=== PATIENT | male | born 1930 | race Caucasian/White ===

== ENCOUNTER 2017-01-15 15:35 | Emergency (ER) | payer MEDICARE, MEDICAID ==
[~2017-01-15] VITALS: Ht 180.3 cm; Wt 104.5 kg
[~2017-01-15 15:35] MED LIST: COU1 PO; FINA1TAB PO; OMEP20TA86 PO; VALS40TA2 PO
[2017-01-15 15:40] VITALS: BP 175/71; PULSE 70; RESP 18; O2SAT 92
[2017-01-15 16:19] LABS: BASOPHILS % (AUTO) 0.3 % (0-3); Mean Corpuscular Hemoglobin 31.4 pg (27.0-35.0); Mean Corpuscular Volume 95.2 fL (81-100); NEUTROPHILS % (AUTO) 77.5 % (40-74); Platelet Count 165 bil/L (150-400)
[2017-01-15 16:38] LABS: INR 2.09 ratio
--- NOTE | 2017-01-15 18:06 | ED.REPORT ---
HPI-Dental/Mouth Prob Date of Service Jan 15, 2017 ED Provider: Onur Soto MD Arvin is an 86-year-old male presenting with a chief complaint of bleeding from the site of a tooth extraction. Reports having a tooth extracted on Wednesday. There was an initial period of bleeding which resolved. Over today he stood up from his chair and reports "my mouth was suddenly filled with blood ". Has been attempting treatment with gauze packing, and bleeding has slowed. Patient was seen by his dentist and referred to the emergency department. Patient takes Coumadin. His daughter is concerned about having a possibility of rebleeding. Nursing Notes Stated Complaint: BLEEDING FROM MOUTH Chief Complaint: ENT & Mouth Nursing Notes Reviewed: Yes Allergies: Coded Allergies: No Known Allergies (Unverified , 01/15/17) Miscellaneous Medications Finasteride-Expunged Drug, Do Not Renew! (Propecia-Expunged Drug, Do Not Renew! ) 1 Mg Tablet 1 MG PO Omeprazole-Expunged Drug, Do Not Renew! (Omeprazole-Expunged Drug, Do Not Renew! ) 20 Mg Tablet.dr 20 MG PO Valsartan-Expunged Drug, Do Not Renew! (Diovan-Expunged Drug, Do Not Renew!) 40 Mg Tablet 40 MG PO Warfarin Inactive Drug Do Not Use (Coumadin Inactive Drug Do Not Use) 1 Mg Tablet 1 MG PO DAILY General Time Seen by MD: 17:50 Chief Complaint Other (bleeding from site of tooth extraction.) Past Medical History Past Medical History Anxiety Hx of kidney stones Reports: Congestive heart failure, Hypertension Reports: Atrial fibrillation Past Surgical History Pacemaker Smoking History Never Smoker Review of Systems Review of Systems Note: Negative unless stated otherwise in history of present illness Physical Exam General: Well appearing, well developed, well nourished, no acute distress. Well-appearing elderly gentleman seated in wheelchair, receiving oxygen by nasal cannula from his own tank. Head: Atraumatic, normocephalic. Eyes: No scleral icterus or injection. No discharge. Vision grossly intact. ENT: Voice clear, hearing grossly intact. Mouth: Sparse dentition. Slow bleeding from the site of excised left upper incisor. Respiratory: No respiratory distress, no increased work of breathing. Speaks in complete sentences. Skin: Warm and dry. Neurological: Grossly nonfocal. Psychological: alert and oriented. Speech appropriate, linear and logical. Behavior appropriate. Initial Vital Signs Vital Signs (First) Date Time Temp Pulse Resp B/P Pulse Ox O2 Delivery O2 Flow Rate FiO2 01/15/17 15:40 36.6 70 18 175/71 92 Room Air Initial VS: Vital signs abnormal (elevated blood pressure) Interpretation & Diagnostics Lab Results Interpretation Result Diagram: 01/15/17 1610 Test 01/15/17 16:10 White Blood Count 6.7th/mm3 (3.8-10.1) Red Blood Count 4.42mil/mm3 (4.40-5.80) Hemoglobin 13.9g/dL (13.8-17.2) Hematocrit 42.1% (41.0-50.0) Mean Corpuscular Volume 95.2fL (81-100) Mean Corpuscular Hemoglobin 31.4pg (27.0-35.0) Mean Corpuscular Hemoglobin Concent 33.0% (32.0-37.0) Red Cell Distribution Width 14.9% (12.3-15.4) Platelet Count 165bil/L (150-400) Neutrophils (%) (Auto) 77.5% (40-74) Lymphocytes (%) (Auto) 7.9% (14-46) Monocytes (%) (Auto) 11.0% (4-12) Eosinophils (%) (Auto) 3.0% (0-5) Basophils (%) (Auto) 0.3% (0-3) Prothrombin Time 22.7sec (8.1-12.5) Prothromb Time International Ratio 2.09ratio Hold Young Top Tube Received (Received) Procedures Laceration Management Laceration Management: Silver nitrite and TXA applied to wound Time: 20:05 Procedure Performed by: ED physician Consent / Setup / Site Prep: Consent from patient, Time-out performed, Hand hygiene observed, Stand sterile technique Location of Wound: Left upper jaw dental extraction, complicated Wound Length: 1 cm Local Anesthesia: Lidocaine w epi 1% Repair Skin: ___ O (4), Chromic (Gut) # Sutures - SubQ: 4 Suture Technique: Simple (Interrupted) Post-Procedure / Complications: No complications, Condition improved, Tolerated procedure well, Patient stable Re-Eval/Medical Decision Med Decision/Clinical Course 86-year-old gentleman with history of COPD, A. fib taking Coumadin presents with bleeding from the site of a recent tooth extraction performed possibly 4 days ago. After some initial bleeding problems, leading had resolved but resumed abruptly after the patient gabriele from his chair earlier today. Reports spitting out a great deal of blood. Patient was seen by his dentist who referred him to the emergency department. INR is within therapeutic range. H&H are within normal limits. Initial attempts to stop bleeding with direct pressure failed as well as initial attempts with TXA. I discussed the case with Dr. Wang Faith of ENT as well as Dr. soto who met with and examine the patient. Dr. soto succeeded in stopping the bleeding with sutures as well as TXA and silver nitrate. At this point this appears to be a relatively fragile clot and the patient is advised to be extremely cautious eating and drinking. We do feel he is stable and safe to be discharged to home. Advised dental follow-up, provided emergency return precautions. Answered all questions to the best of my ability. Patient verbalizes understanding of and content to the plan. Re-Evaluation/Progress : Time of Eval: 19:51 Patient Status: Condition improved Re-Evaluation/Progress Note: Patient rechecked by Dr. Soto. Discussed with plan for laceration management. Laceration management performed Consultation : Referral / Consult Name: Wang Faith MD Consulted With: ENT Call Returned at: 19:18 Note: Recommends evacuating the clot, injecting with local anesthetic, packing the socket with strip gauze, applying direct pressure. Discharge & Departure Primary Impression: Postoperative bleeding from mouth Additional Impressions: Status post tooth extraction Tooth loss class: unspecified tooth loss Qualified Code: K08.409 - Partial loss of teeth, unspecified cause, unspecified class Elevated blood pressure reading Disposition: Home Discharge Condition All VS Reviewed: Yes Condition: Stable Additional Instructions: Evaluation for bleeding from a tooth extraction site in the emergency department. We had very difficult time getting the bleeding to stop however. It was ultimately controlled with several sutures in your gum. This is a fairly fragile repair and OB important for you not to disturb it for the next several days. Avoid solid food, touching it with your tongue. Be very careful drinking and taking pills. Return to the emergency department if bleeding resumes. Follow-up with your dentist tomorrow. Your Coumadin level is appropriate. Do not alter your dose at this time. We have given you a shot of Dilaudid for pain here in the emergency department. Be very careful returning home as it can make you unsteady and increase the risk of falls. Resume your usual pain medication in 4-6 hours. Return to emergency department for any new or worsening symptoms including new bleeding. I also note that your blood pressure was elevated during your visit to the emergency department. Please discuss this with your primary care provider. [facility]: [facility] EDSupervising Provider for APC: Onur Soto MD Attestation Portions of this note were transcribed by Lea Westbrook. I, Dr. Soto, personally performed the history, physical exam, and medical decision-making; I reviewed and confirmed the accuracy of the information in the transcribed note. Signed by: Jose Rubio, 01/15/2017, 22:20 Attending Statement I assisted Frank Cohn PA-C in the treatment of this patient. I applied several dissolvable sutures to the area of bleeding dental extraction as well as cautery with silver nitrate and application of Tenex and casted. Eventually I was able to completely stop the bleeding. Patient was observed here in the emergency department for a period of time thereafter and had no recurrent bleeding. He was discharged in good condition with plan to follow back up with his dentist. copies to: [facility] Frank Cohn PA-C Jan 15, 2017 18:06 LEA WESTBROOK Jan 15, 2017 19:57 Onur Soto MD Jan 16, 2017 00:21
[2017-01-15] MEDS ORDERED: Tranexamic Acid 100 mg/mL 10 mL Inj TOPICAL ONE (18:30)
[2017-01-15] MEDS ORDERED: Silver Nitrate Stick TOPICAL ONE (19:45)
[2017-01-15] MEDS ORDERED: HYDROmorphone 0.5 mg/0.5 mL iSecure Syringe IM ONE (20:55)
[2017-01-15] MEDS ORDERED: Ondansetron 8 mg ODT Tablet PO ONE (20:55)
[2017-01-15 21:32] VITALS: BP 166/73; PULSE 70; RESP 16; O2SAT 96
== END 2017-01-15 21:18 | disposition home or self-care (01) ==
LOC: SED 15:35
DX: K91.840 Postprocedural hemorrhage of a digestive system organ or structure following a digestive system procedure (principal); K08.409 Partial loss of teeth, unspecified cause, unspecified class; R03.0 Elevated blood-pressure reading, without diagnosis of hypertension; I11.0 Hypertensive heart disease with heart failure; I48.91 Unspecified atrial fibrillation; Z95.5 Presence of coronary angioplasty implant and graft
CPT/HCPCS: 12011; 36415; 85025; 85610; 99283; J1170

== ENCOUNTER 2017-01-21 21:04 | Emergency (ER) | payer MEDICARE, MEDICAID ==
[~2017-01-21] VITALS: Ht 180.3 cm; Wt 104.0 kg
[2017-01-21 21:32] VITALS: BP 148/68; RESP 16; O2SAT 95
--- NOTE | 2017-01-21 21:48 | ED.REPORT ---
HPI-Dental/Mouth Prob Date of Service January 21, 2017 ED Provider: Onur Soto MD Patient is a 86 year old male with a history of A-fib on Coumadin who presents to the ED for a recheck following a dental extraction on 01/15. He is currently expressing concern about a flap of skin that remains. The area was repaired with silver nitrate, dissolvable stitches to help control intractable bleeding. He denies any other medical complaints at this time. Nursing Notes Stated Complaint: ORAL COMPLAINTS Chief Complaint: ENT & Mouth Nursing Notes Reviewed: Yes Allergies: Coded Allergies: No Known Allergies (Unverified , 01/15/17) Miscellaneous Medications Finasteride-Expunged Drug, Do Not Renew! (Propecia-Expunged Drug, Do Not Renew! ) 1 Mg Tablet 1 MG PO Omeprazole-Expunged Drug, Do Not Renew! (Omeprazole-Expunged Drug, Do Not Renew! ) 20 Mg Tablet.dr 20 MG PO Valsartan-Expunged Drug, Do Not Renew! (Diovan-Expunged Drug, Do Not Renew!) 40 Mg Tablet 40 MG PO Warfarin Inactive Drug Do Not Use (Coumadin Inactive Drug Do Not Use) 1 Mg Tablet 1 MG PO DAILY General Time Seen by MD: 21:42 Chief Complaint Bleeding gums Hx Obtained From: Patient Arrived By: Walk-in Onset Occurred: Onset unknown Symptom Duration: Since onset Location: : Tooth upper L lat incisor Quality: Painful Radiation: : Does not radiate Severity: Current: Mild Severity: Maximum: Mild Pertinent Negative: Pt denies other symptoms Recent Healthcare: No recent hospitalization, Recent doctor visit Past Medical History Past Medical History Anxiety Hx of kidney stones Reports: Congestive heart failure, Hypertension Reports: Atrial fibrillation Past Surgical History Pacemaker Smoking History Never Smoker Social History Other Social History: Good social support, Local resident Ambulatory Status Independent Review of Systems Skin flap near laceration is pt's only complaint at this time Constitutional: Denies: Chills, Fever Respiratory: Denies: Shortness of breath GI: Denies: Nausea, Vomiting Complete sys rev & neg: except as marked. Physical Exam Initial Vital Signs Vital Signs (First) Date Time Temp Pulse Resp B/P Pulse Ox O2 Delivery O2 Flow Rate FiO2 01/21/17 21:32 36.1 70 16 148/68 95 Room Air Initial VS: Reviewed Extremities: Vascular intact, Neuro intact, No swelling, No tenderness Skin: Warm, Dry, No cyanosis Neurologic: Alert, Oriented, Nonfocal Psychiatric: Mood/affect normal, Behavior normal, Normal thought content ENT: Atraumatic, Airway patent, Mucous membranes moist, Pharynx NL ENT: Region of sutures and an old clot dangling from one remaining dissolvable sutures No signs of infection including abscess, redness, swelling L upper dental extraction site Neck: Atraumatic, Supple, Full range of motion General/Constitutional: Awake, Alert, No acute distress Head / Eyes: Atraumatic, Normocephalic, PERRL Respiratory / Chest: Atraumatic, Breath sounds NL, Breath sounds = bilat, No respiratory distress Cardiovascular: Heart rate NL, Regular rhythm, Heart sounds NL, No gallop, No murmurs, No rubs, Peripheral circulation NL, Pulses = bilaterally Abdomen: Atraumatic, Soft, Non-tender, No distention Re-Eval/Medical Decision Med Decision/Clinical Course The patient is an 86-year-old male on Coumadin who I saw recently in this emergency department due to significant bleeding from a recent dental extraction site. I was able to eventually manage his bleeding after placing multiple chromic gut sutures and cauterizing the region using silver nitrate. He presents back to the emergency room today stating that his bleeding is well- controlled but that he has a dangling region of tissue in his mouth that is been bothering him. Examination reveals that his dental extraction site is healing nicely. There is a region of scab that is now calm loose and is hanging by one remaining piece of chromic gut suture. This suture was cut and the region of scab was removed. There is no evidence of abscess, cellulitis, infection and there is no active bleeding present. I feel that the patient is appropriate for discharge. Prior to discharge follow-up and return precautions were reviewed in detail with the patient who verbalized understanding and agreement with the plan. The patient was discharged in stable condition. Re-Evaluation/Progress : Time of Eval: 22:20 Patient Status: Condition improved Re-Evaluation/Progress Note: Patient is informed of his results and diagnosis. All of the patient's questions are addressed. He understands and agrees with treatment plan. Counseled Regarding: Diagnosis, Need for follow-up, When/why to return to ED Discharge & Departure Primary Impression: Postoperative bleeding from mouth Additional Impression: Encounter for removal of sutures Disposition: Home Discharge Condition All VS Reviewed: Yes Condition: Improved Additional Instructions: Thank you for seeking care at the emergency room. Our primary goal today in the ED was to evaluate you for any life-threatening conditions. Your evaluation was reassuring. You should follow-up with your dentist the next week. You should return to the ED immediately if you develop any sings of infection or any other concerning signs or symptoms. Thank you for letting us partake in your care today. [facility]errals: [facility] ([facility] Scribe Attestation Portions of this note were transcribed by Rudy Gonzalez. I, Dr. Soto personally performed the history, physical exam and medical decision-making; I reviewed and confirmed the accuracy of the information in the transcribed note. Signed by: Jose Johnson, 01/21/17 [id number] copies to: [facility] Onur Soto MD January 21, 2017 21:48 RUDY GONZALEZ January 21, 2017 22:19
[2017-01-21 22:22] VITALS: BP 142/70; PULSE 72; RESP 17; O2SAT 96
== END 2017-01-21 22:23 | disposition home or self-care (01) ==
LOC: SED 21:04
DX: K91.840 Postprocedural hemorrhage of a digestive system organ or structure following a digestive system procedure (principal); I10 Essential (primary) hypertension; I50.9 Heart failure, unspecified; I48.91 Unspecified atrial fibrillation; Z95.0 Presence of cardiac pacemaker; Z87.442 Personal history of urinary calculi; Z48.02 Encounter for removal of sutures; Z79.01 Long term (current) use of anticoagulants